=== PATIENT | female | born 1960 ===

== ENCOUNTER → 2021-03-04 | Outpatient (REF) ==
--- NOTE | 2021-03-05 04:13 | REP ---
INDICATION: ROM COMPARISON: None. TECHNIQUE: Internal rotation, external rotation, and Y view. FINDINGS: No acute fracture or dislocation. The acromioclavicular and glenohumeral joints are intact. No periarticular calcifications or overt degenerative changes are appreciated. Sub acromial space is normal. Surrounding soft tissues are unremarkable. IMPRESSION: Normal age-appropriate left shoulder radiographs. <Electronically signed by Preet Rodgers > 03/05/21 [id number]
--- NOTE | 2021-03-05 05:41 | REP ---
INDICATION: ROM COMPARISON: None. TECHNIQUE: AP, lateral, bilateral oblique views left hand. FINDINGS: Age-related osteopenia and mild generalized arthritic changes include periarticular sclerosis and joint space narrowing primarily involving the interphalangeal joints as well as the 1st metacarpophalangeal joint. No further overt osteoarthritic findings are appreciated. No periarticular erosive changes or calcifications. No acute fracture or dislocation. No subcutaneous emphysema or foreign body. IMPRESSION: Age-related osteopenia and mild generalized arthritic changes. No acute fracture or dislocation. <Electronically signed by Preet Rodgers > 03/05/21 0537
== END ==
LOC: M PLAIMG 14:36
PROVIDERS: ATTEND Internal Medicine
DX: M85.841 Other specified disorders of bone density and structure, right hand (principal); M85.842 Other specified disorders of bone density and structure, left hand; M19.041 Primary osteoarthritis, right hand; M19.042 Primary osteoarthritis, left hand